=== PATIENT | female | born 1950 | race African-American/Black ===

== ENCOUNTER 2016-11-16 10:16 | Emergency (ER) | payer MEDICARE, MEDICAID ==
[~2016-11-16] VITALS: Ht 170.2 cm; Wt 69.0 kg
[2016-11-16 12:41] LABS: BASOPHILS % 0.4 % (0.0-2.0); EOSINOPHILS % 0.2 % (0.0-5.0); HEMATOCRIT. 38.6 % (36.0-48.0); LYMPHOCYTES % 18.1 % (20.0-50.0); MEAN CORPUSCULAR HEMOGLOBIN 32.8 pg (28.0-32.0); MEAN CORPUSCULAR HGB CONC 33.7 g/dL (31.0-37.0); MEAN CORPUSCULAR VOLUME 97.1 fL (81.0-99.0); MEAN PLATELET VOLUME 10.3 fl (7.4-10.4); MONOCYTES % 10.1 % (2.0-8.0); NEUTROPHILS % 71.2 % (40.0-76.0); PLATELET 155 x1000/uL (130-400); RED BLOOD CELL COUNT 3.97 mill/uL (4.2-5.4); RED CELL DISTRIBUTION WIDTH 14.1 % (11.6-14.6); WHITE BLOOD COUNT 7.1 x1000/uL (4.5-11.0)
[2016-11-16 12:45] LABS: CHLORIDE 103 mEq/L (98-107); INDEX HEMOLYSI 1 (1-3); INDEX ICTERIC 1 (1-4); INDEX LIPEMIC 1 (1-3)
[2016-11-16 12:51] LABS: INR 1.2; PROTHROMBIN TIME 12.1 sec
[2016-11-16 12:54] LABS: ALANINE AMINOTRANSFERASE 146 IU/L (13-61); ALBUMIN 3.1 g/dL (3.4-5.0); ANION GAP 12; CALCIUM 9.2 mg/dL (8.5-10.1); CARBON DIOXIDE 27 mEq/L (21-32); LIPASE 168 IU/L (73-393); UREA NITROGEN BLOOD 13 mg/dL (7-21); eGFR > 60 mL/min (>60)
[2016-11-16] MEDS ORDERED: IBUPROFEN 600MG TABLET PO ONE (13:00)
[2016-11-16 15:10] VITALS: BP 144/94
[2016-11-16 15:11] LABS: CLARITY URINE CLOUDY (CLEAR); COLOR URINE YELLOW (YELLOW); GLUCOSE URINE NEGATIVE (NEGATIVE); KETONES URINE TRACE (NEGATIVE); LEUKOCYTE ESTERASE URINE NEGATIVE (NEGATIVE); NITRITE URINE NEGATIVE (NEGATIVE); OCCULT BLOOD URINE NEGATIVE (NEGATIVE); PROTEIN URINE TRACE (NEGATIVE); SPECIFIC GRAVITY URINE 1.018 (1.005-1.030)
[2016-11-16 15:36] LABS: BACTERIA URINE 2+; RBC URINE 0-2 /hpf (0-2); SQUAMOUS EPITHELIAL CELL URINE 1+ /lpf (RARE/1+); WBC URINE 0-2 /hpf (0-2)
== END 2016-11-16 17:50 | disposition home or self-care (01) ==
LOC: ER 11:02
DX: G89.3 Neoplasm related pain (acute) (chronic) (principal); K52.9 Noninfective gastroenteritis and colitis, unspecified; E87.6 Hypokalemia; E86.0 Dehydration; K57.30 Diverticulosis of large intestine without perforation or abscess without bleeding; I10 Essential (primary) hypertension; Z92.21 Personal history of antineoplastic chemotherapy; Z87.891 Personal history of nicotine dependence; Z85.05 Personal history of malignant neoplasm of liver; Z98.890 Other specified postprocedural states
CPT/HCPCS: 36415; 71010; 74176; 80053; 81001; 83690; 85025; 85610; 99285

== ENCOUNTER 2017-12-16 22:13 | Inpatient (IN) | payer MEDICARE, MEDICAID ==
[~2017-12-16] VITALS: Ht 170.2 cm; Wt 48.1 kg
[2017-12-16] MEDS ORDERED: SODIUM CHLORIDE 0.9% 1,000 ML IV ONE (22:48)
[2017-12-17 00:38] LABS: BASOPHILS % 0.2 % (0.0-2.0); EOSINOPHILS % 0.1 % (0.0-5.0); HEMATOCRIT. 36.9 % (36.0-48.0); HEMOGLOBIN. 12.8 g/dL (12.0-16.0); LYMPHOCYTES % 16.2 % (20.0-50.0); MEAN CORPUSCULAR HEMOGLOBIN 32.4 pg (28.0-32.0); MEAN PLATELET VOLUME 8.4 fl (7.4-10.4); MONOCYTES % 9.7 % (2.0-8.0); NEUTROPHILS % 73.8 % (40.0-76.0); PLATELET 168 x1000/uL (130-400); RED BLOOD CELL COUNT 3.96 mill/uL (4.2-5.4); RED CELL DISTRIBUTION WIDTH 15.6 % (11.6-14.6)
[2017-12-17 00:47] LABS: CHLORIDE 108 mEq/L (98-107)
[2017-12-17 00:52] LABS: AMMONIA 61 uMol/L (<32); ETHANOL BLOOD < 10 mg/dL
[2017-12-17 00:53] LABS: INR 1.5; PROTHROMBIN TIME 16.2 sec (9.4-11.6)
[2017-12-17] MEDS ORDERED: POTASSIUM CHLORIDE INJ 40 MEQ in DEXT 5% WATER 250 ML IV ONE (01:15)
[2017-12-17] MEDS ORDERED: POTASSIUM CHLORIDE 20MEQ TABLET SR PO SCH (01:34)
[2017-12-17] MEDS ORDERED: KCL 20MEQ/100ML PREMIX 100 ML IV SCH ×2 (02:00)
[2017-12-17 08:00] VITALS: BP 128/83
[2017-12-17] MEDS ORDERED: AMLO10TA80 PO (11:20)
[2017-12-17 11:27] VITALS: BP 128/83
[2017-12-17 12:00] VITALS: BP 155/96
[2017-12-17] MEDS ORDERED: GUAIFENESIN 200MG/10ML SUGAR FREE UDC PO PRN (13:45)
[2017-12-17] MEDS ORDERED: MAGNESIUM/ALUMINUM HYDROXIDE/SIMETHICONE 30ML UDC PO PRN (13:45)
[2017-12-17] MEDS ORDERED: IPRATROPIUM/ALBUTEROL 0.5-3(2.5)MG/3ML NEB INH PRN (13:45)
[2017-12-17] MEDS ORDERED: NA PHOS,M-B/NA PHOS,DI-BA ENEMA 118ML PR PRN (13:45)
[2017-12-17] MEDS ORDERED: CLONIDINE 0.1MG TABLET PO PRN (13:45)
[2017-12-17] MEDS ORDERED: ACETAMINOPHEN 325MG TABLET PO PRN (13:45)
[2017-12-17] MEDS ORDERED: DOCUSATE SODIUM 100MG CAPSULE PO PRN (13:45)
[2017-12-17] MEDS ORDERED: DIPHENHYDRAMINE 50MG/ML VIAL IV PRN (13:45)
[2017-12-17 15:25] LABS: BASOPHILS % 0.2 % (0.0-2.0); EOSINOPHILS % 0.1 % (0.0-5.0); HEMATOCRIT. 36.9 % (36.0-48.0); HEMOGLOBIN. 12.6 g/dL (12.0-16.0); LYMPHOCYTES % 20.6 % (20.0-50.0); MEAN CORPUSCULAR HEMOGLOBIN 32.1 pg (28.0-32.0); MEAN CORPUSCULAR VOLUME 93.9 fL (81.0-99.0); MEAN PLATELET VOLUME 8.6 fl (7.4-10.4); MONOCYTES % 6.9 % (2.0-8.0); NEUTROPHILS % 72.2 % (40.0-76.0); PLATELET 155 x1000/uL (130-400); RED BLOOD CELL COUNT 3.93 mill/uL (4.2-5.4); RED CELL DISTRIBUTION WIDTH 15.5 % (11.6-14.6)
[2017-12-17 15:32] LABS: CHLORIDE 116 mEq/L (98-107)
[2017-12-17 15:42] LABS: AMMONIA 56 uMol/L (<32)
[2017-12-17 16:00] VITALS: BP 137/96
[2017-12-17] MEDS: SODIUM CHLORIDE 0.9% 1,000 ML IV SCH (17:19)
[2017-12-17] MEDS: SODIUM CHLORIDE 0.9% INJ 3ML FLUSH IVF SCH ×2 (17:19→22:08)
[2017-12-17] MEDS ORDERED: REGO40TA PO (17:43)
[2017-12-17] MEDS ORDERED: GABA-290 MT (17:43)
[2017-12-17] MEDS ORDERED: LOSA50TA20 PO (17:43)
[2017-12-17 19:49] LABS: CLARITY URINE CLEAR (CLEAR); COLOR URINE YELLOW (YELLOW); KETONES URINE NEGATIVE (NEGATIVE); LEUKOCYTE ESTERASE URINE NEGATIVE (NEGATIVE); NITRITE URINE NEGATIVE (NEGATIVE); OCCULT BLOOD URINE NEGATIVE (NEGATIVE); PH URINE 6.5 (4.5-8.0); PROTEIN URINE NEGATIVE (NEGATIVE)
[2017-12-17 20:00] VITALS: BP 135/92
[2017-12-17 20:45] LABS: *BARBITURATES SCREEN URINE NEGATIVE (NEGATIVE); *BENZODIAZEPINES SCREEN URINE NEGATIVE (NEGATIVE); *COCAINE SCREEN URINE NEGATIVE (NEGATIVE); METHADONE URINE SCREEN NEGATIVE (NEGATIVE); OPIATES URINE SCREEN PRESUMTIVE POSITIVE (NEGATIVE)
[2017-12-17 20:46] LABS: *AMPHETAMINES SCREEN URINE NEGATIVE (NEGATIVE); CANNABINOID URINE SCREEN NEGATIVE (NEGATIVE); PHENCYCLIDINE URINE SCREEN NEGATIVE (NEGATIVE)
[2017-12-18] VITALS: BP 135/79
[2017-12-18 04:00] VITALS: BP 149/96
[2017-12-18] MEDS: SODIUM CHLORIDE 0.9% 1,000 ML IV SCH ×2 (06:17→22:18)
[2017-12-18] MEDS: SODIUM CHLORIDE 0.9% INJ 3ML FLUSH IVF SCH ×3 (06:17→22:17)
[2017-12-18 08:00] VITALS: BP 137/94
[2017-12-18 12:00] VITALS: BP 136/85
[2017-12-18 16:00] VITALS: BP 132/84
[2017-12-18 20:00] VITALS: BP 134/80
[2017-12-18 20:59] LABS: BASOPHILS % 0.2 % (0.0-2.0); EOSINOPHILS % 0.1 % (0.0-5.0); HEMATOCRIT. 36.3 % (36.0-48.0); HEMOGLOBIN. 12.3 g/dL (12.0-16.0); LYMPHOCYTES % 16.3 % (20.0-50.0); MEAN CORPUSCULAR HEMOGLOBIN 32.1 pg (28.0-32.0); MEAN CORPUSCULAR VOLUME 94.7 fL (81.0-99.0); MONOCYTES % 5.2 % (2.0-8.0); NEUTROPHILS % 78.2 % (40.0-76.0); PLATELET 143 x1000/uL (130-400); RED BLOOD CELL COUNT 3.84 mill/uL (4.2-5.4); RED CELL DISTRIBUTION WIDTH 15.6 % (11.6-14.6)
[2017-12-18 21:09] LABS: CHLORIDE 115 mEq/L (98-107)
[2017-12-18] MEDS: KCL 20MEQ/100ML PREMIX 100 ML IV SCH (22:17)
[2017-12-19] VITALS: BP 139/87
[2017-12-19] MEDS: KCL 20MEQ/100ML PREMIX 100 ML IV SCH (00:28)
[2017-12-19 05:07] VITALS: BP 122/77
[2017-12-19] MEDS: SODIUM CHLORIDE 0.9% INJ 3ML FLUSH IVF SCH ×3 (06:02→21:07)
[2017-12-19 08:00] VITALS: BP 130/80
[2017-12-19] MEDS: LACTULOSE 20G/30ML UDC PO SCH (09:00)
[2017-12-19 12:00] VITALS: BP 122/81
[2017-12-19 12:32] LABS: CHLORIDE 118 mEq/L (98-107)
[2017-12-19] MEDS ORDERED: POTASSIUM CHLORIDE 20MEQ TABLET SR PO PRN (13:45)
[2017-12-19 16:00] VITALS: BP_SYST 135; BP_SYST 157; BP_DIAS 88; BP_DIAS 90
[2017-12-19] MEDS ORDERED: SODIUM BICARBONATE 8.4% 1 MEQ/ML 50ML SYR IV NR (17:00)
[2017-12-19 19:19] LABS: BASOPHILS % 0.2 % (0.0-2.0); EOSINOPHILS % 0.3 % (0.0-5.0); HEMATOCRIT. 36.7 % (36.0-48.0); HEMOGLOBIN. 12.1 g/dL (12.0-16.0); LYMPHOCYTES % 21.4 % (20.0-50.0); MEAN CORPUSCULAR HEMOGLOBIN 30.9 pg (28.0-32.0); MEAN CORPUSCULAR VOLUME 94.1 fL (81.0-99.0); MEAN PLATELET VOLUME 8.9 fl (7.4-10.4); NEUTROPHILS % 71.1 % (40.0-76.0); PLATELET 150 x1000/uL (130-400); RED CELL DISTRIBUTION WIDTH 16.1 % (11.6-14.6)
[2017-12-19 19:28] LABS: CHLORIDE 117 mEq/L (98-107)
[2017-12-19 19:33] LABS: AMMONIA 50 uMol/L (<32)
[2017-12-19 20:00] VITALS: BP 133/86
[2017-12-19] MEDS: SODIUM CHLORIDE 0.9% 1,000 ML IV SCH (20:13)
[2017-12-20] VITALS: BP 134/89
[2017-12-20 04:00] VITALS: BP 130/83
[2017-12-20] MEDS: SODIUM CHLORIDE 0.9% INJ 3ML FLUSH IVF SCH ×3 (06:14→22:35)
[2017-12-20 08:00] VITALS: BP 133/81
[2017-12-20] MEDS: SODIUM CHLORIDE 0.9% 1,000 ML IV SCH (10:06)
[2017-12-20] MEDS: LACTULOSE 20G/30ML UDC PO SCH (10:06)
[2017-12-20 12:00] VITALS: BP 134/92
[2017-12-20 12:21] LABS: HEMATOCRIT. 35.6 % (36.0-48.0); HEMOGLOBIN. 12.5 g/dL (12.0-16.0); MEAN CORPUSCULAR HEMOGLOBIN 32.7 pg (28.0-32.0); MEAN CORPUSCULAR VOLUME 93.2 fL (81.0-99.0); MEAN PLATELET VOLUME 8.7 fl (7.4-10.4); PLATELET 125 x1000/uL (130-400); RED BLOOD CELL COUNT 3.82 mill/uL (4.2-5.4); RED CELL DISTRIBUTION WIDTH 15.9 % (11.6-14.6)
[2017-12-20 12:48] LABS: CHLORIDE 114 mEq/L (98-107)
[2017-12-20 12:55] LABS: PLATELET ESTIMATE SLIGHTLY DECREASED
[2017-12-20 16:00] VITALS: BP 134/83
[2017-12-20] MEDS ORDERED: NON FORMULARY PATIENT HOME MED EA XX SCH (17:45)
[2017-12-20] MEDS: MEGESTROL ACETATE 400 MG/10 ML UDC PO SCH (18:18)
[2017-12-20 20:00] VITALS: BP 126/80
[2017-12-20] MEDS ORDERED: POTASSIUM CHLORIDE 20MEQ TABLET SR PO NR (20:45)
[2017-12-20] MEDS ORDERED: MEGE40TA27 GT (20:51)
[2017-12-21] VITALS: BP 132/83
[2017-12-21 04:00] VITALS: BP 120/72
[2017-12-21] MEDS: SODIUM CHLORIDE 0.9% INJ 3ML FLUSH IVF SCH ×3 (06:13→22:44)
[2017-12-21 08:00] VITALS: BP 128/79
[2017-12-21] MEDS: MEGESTROL ACETATE 400 MG/10 ML UDC PO SCH ×2 (08:30→13:30)
[2017-12-21 11:13] LABS: HEPATITIS B SURFACE ANTIGEN NEGATIVE
[2017-12-21 11:41] LABS: HEPATITIS B CORE AB IGM NEGATIVE
[2017-12-21 11:42] LABS: HEPATITIS A AB IGM NEGATIVE (NEGATIVE)
[2017-12-21 12:00] VITALS: BP 127/86
[2017-12-21] MEDS ORDERED: LACT10SO6 MT (13:15)
[2017-12-21] MEDS ORDERED: LACTULOSE 20G/30ML UDC PO NR (13:30)
[2017-12-21 16:00] VITALS: BP 142/91
[2017-12-21 16:02] LABS: BASOPHILS % 0.3 % (0.0-2.0); CHLORIDE 110 mEq/L (98-107); EOSINOPHILS % 0.5 % (0.0-5.0); HEMATOCRIT. 35.2 % (36.0-48.0); HEMOGLOBIN. 12.1 g/dL (12.0-16.0); LYMPHOCYTES % 22.8 % (20.0-50.0); MEAN CORPUSCULAR HEMOGLOBIN 32.5 pg (28.0-32.0); MEAN CORPUSCULAR VOLUME 94.9 fL (81.0-99.0); MEAN PLATELET VOLUME 8.9 fl (7.4-10.4); MONOCYTES % 6.8 % (2.0-8.0); NEUTROPHILS % 69.6 % (40.0-76.0); PLATELET 109 x1000/uL (130-400); RED BLOOD CELL COUNT 3.71 mill/uL (4.2-5.4); RED CELL DISTRIBUTION WIDTH 15.8 % (11.6-14.6)
[2017-12-21 16:09] LABS: AMMONIA 30 uMol/L (<32)
[2017-12-21 20:00] VITALS: BP 137/91
[2017-12-22] VITALS: BP 136/92
[2017-12-22 04:00] VITALS: BP 147/94
[2017-12-22] MEDS: SODIUM CHLORIDE 0.9% INJ 3ML FLUSH IVF SCH ×2 (06:26→15:29)
[2017-12-22 08:00] VITALS: BP 134/81
[2017-12-22] MEDS: MEGESTROL ACETATE 400 MG/10 ML UDC PO SCH ×2 (08:22)
[2017-12-22 12:00] VITALS: BP 133/81
[2017-12-22 16:00] VITALS: BP 132/86
[2017-12-22 17:49] VITALS: BP 132/86
== END 2017-12-22 19:00 | DRG 441 ==
LOC: ER 22:58 → 5WST 12-17 01:47 → CANRESERV 12-17 04:35 → ENRESERV 12-17 04:35
PROVIDERS: ADMIT Internal Medicine; ATTEND Internal Medicine
DX: K72.90 Hepatic failure, unspecified without coma (principal); E43 Unspecified severe protein-calorie malnutrition; C22.9 Malignant neoplasm of liver, not specified as primary or secondary; E72.20 Disorder of urea cycle metabolism, unspecified; D68.9 Coagulation defect, unspecified; E72.4 Disorders of ornithine metabolism; Z68.1 Body mass index [BMI] 19.9 or less, adult; R59.9 Enlarged lymph nodes, unspecified; R74.0 Nonspecific elevation of levels of transaminase and lactic acid dehydrogenase [LDH]; E87.6 Hypokalemia; R19.00 Intra-abdominal and pelvic swelling, mass and lump, unspecified site; R62.7 Adult failure to thrive; B19.20 Unspecified viral hepatitis C without hepatic coma; I10 Essential (primary) hypertension; Z85.07 Personal history of malignant neoplasm of pancreas; Z79.899 Other long term (current) drug therapy; Z92.21 Personal history of antineoplastic chemotherapy
CPT/HCPCS: 36415; 70450; 70551; 71045; 71275; 76700; 80048; 80053; 80076; 80305; 81003; 82105; 82140; 82248; 82378; 83615; 83880; 84443; 84484; 85025; 85379; 85610; 86705; 86709; 86803; 87340; 93005; 93970; 96360; 96361; 97116; 97162; 97166; 97530; 99285; A6261; G0482; J3480; J3490; J7030